=== PATIENT | male | born 1985 | race Hispanic/Latino ===

== ENCOUNTER → 2025-05-13 | Outpatient (CLI) | payer OTHER ==
--- NOTE | 2025-05-14 13:03 | HMCIMG ---
EXAM: CT Cardiac calcium scoring. CLINICAL HISTORY: Screening. TECHNIQUE: Thin collimated axial CT cardiac images were obtained. A CT scan is done according to ALARA (As Low As Reasonably Achievable). CONTRAST: None. COMPARISON: None provided. FINDINGS: Calcium Score: VESSEL Number of lesions Volume mm3 Equi. Mass/mg Calcium score LM 6 3.0 - 5.2 LAD 2 0 - 0.6 LCX 3 16.8 - 8.8 RCA 0 0 - 0 Total 11 19.8 - 14.5 IMPRESSION: The total calcium score is 14.5. This corresponds to approximately the 84th percentile. /[place]
== END | disposition home or self-care (01) ==
LOC: RAH 15:25
PROVIDERS: ATTEND Internal Medicine Hematology & Oncology
DX: Z13.6 Encounter for screening for cardiovascular disorders (principal)
CPT/HCPCS: 75571